=== PATIENT | female | born 1950 | race Caucasian/White ===

== ENCOUNTER 2020-02-07 07:21 | Outpatient (CLI) | payer OTHER ==
[~2020-02-07] VITALS: Ht 162.6 cm; Wt 49.9 kg
[2020-02-07] VITALS (7 sets, daily range): BP systolic 131–158; BP diastolic 67–77
[2020-02-07 07:50] LABS: BASO # 0.1 x10^3/uL (0.0-0.2); BASO % 1 % (0-3); EOS # 0.1 x10^3/uL (0.0-0.7); EOS % 2 % (0-3); HEMATOCRIT 28.2 % (36.0-47.0); HEMOGLOBIN 9.7 g/dL (12.0-15.5); LYMPH # 1.3 x10^3/uL (1.0-4.8); LYMPH % 23 % (24-48); MEAN CORPUSCULAR HEMOGLOBIN 30 pg (25-35); MEAN CORPUSCULAR HGB CONC 34 g/dL (31-37); MEAN CORPUSCULAR VOLUME 86 fL (79-100); MONO # 0.6 x10^3/uL (0.0-1.1); MONO % 10 % (0-9); NEUT # 3.8 x10^3/uL (1.8-7.7); NEUT % 64 % (31-73); PLATELET COUNT 402 x10^3/uL (140-400); RED BLOOD COUNT 3.27 x10^6/uL (3.50-5.40); WHITE BLOOD COUNT 5.9 x10^3/uL (4.0-11.0)
[2020-02-07 07:58] LABS: PROTHROMBIN TIME PATIENT 12.2 SEC (11.7-14.0)
[2020-02-07] MEDS ORDERED: LUBI24CA7 PO (08:18)
[2020-02-07] MEDS ORDERED: SCOP1PAT11 TP (08:18)
[2020-02-07] MEDS ORDERED: ZOLP5TAB5 PO (08:18)
[2020-02-07] MEDS ORDERED: PANT40TA77 PO (08:18)
[2020-02-07] MEDS ORDERED: CBD Gummies PO (08:18)
[2020-02-07] MEDS ORDERED: PRAM0.255 PO (08:18)
[2020-02-07] MEDS ORDERED: DULO60CA6 PO (08:18)
[2020-02-07] MEDS ORDERED: MIDAZOLAM HCL/PF 2 MG/2 ML VIAL. IV ONE (08:30)
[2020-02-07] MEDS ORDERED: fentaNYL PF VIAL 100 MCG/2 ML VIAL IV ONE (08:30)
[2020-02-07] MEDS ORDERED: ceFAZolin SODIUM IV Push 1 GM VIAL. IVP ONE (08:30)
[2020-02-07] MEDS ORDERED: LIDOCAINE 1%/EPI 1:100,000 20 ML VIAL. ONE (08:44)
[2020-02-07] MEDS ORDERED: ONDANSETRON PF 4 MG/2 ML VIAL. ONE (09:22)
[2020-02-07] MEDS ORDERED: ONDANSETRON PF 4 MG/2 ML VIAL. IVP ONE (09:30)
--- NOTE | 2020-02-07 10:55 | NUR ---
Discharge Note: KAREEN CERDA Discharge instructions and discharge home medications reviewed with Patient and a copy given. All questions have been answered and understanding verbalized. Dressing site to R lower abdomen remains clean and dry The following instructions and handouts were given: incision site care, sedation Pleurx pt kit with instructions provided to pt. Instructions for use reviewed by Rebekah Michelle RT Discontinued lines and drains: Peripheral IV intact. Patient discharged to [facility] with [facility] via Wheelchair ROBERT MICHELLE
--- NOTE | 2020-02-07 12:09 | RAD ---
Ultrasound and fluoroscopically guided placement of tunneled peritoneal drainage catheter 02/07/2020 INDICATION: Discussion: The procedure was explained in its entirety to the patient or the patients designated risk control representative by a member of the treatment team, including a discussion of the risks, benefits and commonly accepted alternatives to the procedure, as well as the expected consequences of no therapy whatsoever. Discussion of the risks included, but was not limited to, those that are most frequent and those that are rare but possibly severe or life-threatening, as well as the possibility of unforeseen complications. All elements of maximal sterile barrier technique including the use of a cap, mask, sterile gown, sterile gloves, large sterile sheet, appropriate hand hygiene, and 2% chlorhexidine for cutaneous antisepsis (or acceptable alternative antiseptic per current guidelines) were followed for this procedure. Ultrasound evaluation of the abdomen demonstrate small to moderate ascites. Given patient's small body habitus this is causing significant distention and discomfort. 1% lidocaine was administered for local anesthesia under direct ultrasound a micropuncture needle was advanced into the peritoneal. A guidewire was advanced, over which a 5 [place] sheath was placed. A cuff, tunneled peritoneal drainage catheter was advanced from small dermatotomy several centimeters anterior and inferior to this, to the access site. A peel-away sheath was placed over the wire, through which the catheter was advanced into the peritoneal space. Approximately 500 cc of serous fluid was aspirated. The catheter was secured. Sterile dressings were applied. Fluoroscopy demonstrates the catheter to be appropriately coiled in the inferior pelvis. No immediate complications were identified. Total fluoroscopy time: 0.2 min Dose area product: 0.2 Gycm2 The procedures performed under conscious sedation including continuous cardiopulmonary monitoring via dedicated sedation nurse. [id number] sedation time: 33 Impression: Tunneled intraperitoneal drainage catheter placement with ultrasound and fluoroscopic guidance
== END 2020-02-07 10:40 | disposition home or self-care (01) ==
LOC: INTRAD 07:21
PROVIDERS: ATTEND Internal Medicine
DX: R19.8 Other specified symptoms and signs involving the digestive system and abdomen (principal); K74.60 Unspecified cirrhosis of liver; Z79.899 Other long term (current) drug therapy
CPT/HCPCS: 36415; 49418; 85025; 85610; 99152; 99153; C1892; J0690; J2250; J2405; J3010